=== PATIENT | male | born 1980 | race Caucasian/White ===

== ENCOUNTER 2017-06-10 11:03 | Emergency (ER) | payer SELFPAY ==
--- NOTE | 2017-06-10 11:23 | EDM.PDOC ---
ED HPI GENERAL MEDICAL PROBLEM - General Chief Complaint: Upper Extremity Injury/Pain Stated Complaint: PT SAY HE NEEDS XRAY Time Seen by Provider: 06/10/17 11:21 Source of Information: Reports: Patient History Limitations: Reports: No Limitations - History of Present Illness INITIAL COMMENTS - FREE TEXT/NARRATIVE: HISTORY AND PHYSICAL: []36-year-old male presenting after having injury to his left thumb at work History of Present Illness: []Patient was using a machine with brushes and his thumb got bent backwards now is in correct position Denies any difficulty with headaches difficulty chewing and swallowing no chest pain shortness of breath, palpitations denies any cold or flulike symptoms Review of Systems: As per history of present illness and below otherwise all systems reviewed and negative. Past medical history: As per history of present illness and as reviewed below otherwise noncontributory. Surgical history: As per history of present illness and as reviewed below otherwise noncontributory. Social history: No reported history of drug or alcohol abuse. Family history: As per history of present illness and as reviewed below otherwise noncontributory. Physical exam: Alert and oriented male answering questions appropriately in full sentences. It is warm and dry patient walked into the room without any difficulty HEENT: Atraumatic, normocehpalic, pupils reactive, negative for conjunctival pallor or scleral icterus, mucous membranes moist, throat clear, neck supple, nontender, trachea midline. Lungs: Clear to auscultation, breath sounds equal bilaterally, chest non tender. Heart: S1S2, regular, negative for clicks, rubs, or JVD. Abdomen: Soft, nondistended, nontender. Negative for masses or hepatossplenmegaly. Negative for costovertebral tenderness. Pelvis: Stable nontender. Genitourinary: Deferred. Rectal: Deferred Extremities: Atraumatic, negative for cords or calf pain. Neurovascular unremarkable. Neuro: Awake, alert, oriented. Cranial nerves II through XII unremarkable. Cerebellum unremarkable. Motor and sensory unremarkable throughout. Exam nonfocal. Diagnostics: [X-ray left thumb] no fractures were noted Therapeutics: []Thumb spica splint Impression: []Injured his left thumb Plan: []Maintain stability with a thumb spica splint then have follow-up with hand specialist Definitive disposition and diagnosis as appropriate pending reevaluation and review of above. Left Thumb Pain Score (Numeric/FACES): 1 - Related Data Allergies Allergy/AdvReac Type Severity Reaction Status Date / Time No Known Allergies Allergy Verified 06/10/17 11:27 Home Meds: Home Meds . [No Known Home Meds] 06/10/17 [History] Review of Systems - Review of Systems Review Of Systems: ROS reveals no pertinent complaints other than HPI. ED EXAM, GENERAL - Physical Exam Exam: See Below (See dictation) Course - Vital Signs Last Recorded V/S: Last Vital Signs Temp 36.6 C 06/10/17 11:28 Pulse 68 06/10/17 11:28 Resp 18 06/10/17 11:28 BP 121/58 L 06/10/17 11:28 Pulse Ox 97 06/10/17 11:28 - Orders/Labs/Meds Orders: Active Orders 24 hr Category Date Time Status Splinting [RC] ASDIRECTED Care 06/10/17 11:57 Ordered Departure - Departure Time of Disposition: 11:59 Disposition: Home, Self-Care 01 Condition: Good Clinical Impression: Thumb injury Qualifiers: Encounter type: initial encounter Laterality: left Qualified Code(s): S69.92XA - Unspecified injury of left wrist, hand and finger(s), initial encounter - Discharge Information Instructions: Cast or Splint Care, [id number] Referrals: PCP,None [Primary Care Provider] - Forms: ED Department Discharge Additional Instructions: The following information is given to patients seen in the emergency department who are being discharged to home. This information is to outline your options for follow-up care. We provide all patients seen in our emergency department with a follow-up referral. The need for follow-up, as well as the timing and circumstances, are variable depending upon the specifics of your emergency department visit. If you don't have a primary care physician on staff, we will provide you with a referral. We always advise you to contact your personal physician following an emergency department visit to inform them of the circumstance of the visit and for follow-up with them and/or the need for any referrals to a consulting specialist. The emergency department will also refer you to a specialist when appropriate. This referral assures that you have the opportunity for followup care with a specialist. All of these measure are taken in an effort to provide you with optimal care, which includes your followup. Under all circumstances we always encourage you to contact your private physician who remains a resource for coordinating your care. When calling for followup care, please make the office aware that this follow-up is from your recent emergency room visit. If for any reason you are refused follow-up, please contact the [facility] emergency department at and asked to speak to the emergency department charge nurse. X-rays did not show a fracture Wrist some edema present Highly recommend a thumb spica splint in place Follow up with further evaluation Week with the hand specialist Dr. Vicki Torres [facility] Professional Building [address] [place] [address], [address] [place] [address] - My Orders Last 24 Hours: My Active Orders 06/10/17 11:57 Splinting [RC] ASDIRECTED - Assessment/Plan Last 24 Hours: My Active Orders 06/10/17 11:57 Splinting [RC] ASDIRECTED
--- NOTE | 2017-06-10 11:54 | CR ---
Left thumb Images of the hand attention to the thumb demonstrate no bony abnormality. Impression: No abnormal findings
== END 2017-06-10 12:12 | disposition home or self-care (01) ==
LOC: MW.ED 11:03
DX: S69.92XA Unspecified injury of left wrist, hand and finger(s), initial encounter (principal); W31.9XXA Contact with unspecified machinery, initial encounter; Y92.69 Other specified industrial and construction area as the place of occurrence of the external cause; Y99.0 Civilian activity done for income or pay
CPT/HCPCS: 29125; 73140-26-FA; 73140-FA; 99283